=== PATIENT | male | born 1980 | race Caucasian/White ===

== ENCOUNTER 2017-02-10 10:08 | Emergency (ER) | payer OTHER ==
[~2017-02-10] VITALS: Ht 185.4 cm; Wt 116.0 kg
[2017-02-10] MEDS ORDERED: SODIUM CHLORIDE 0.9% 1,000 ML IV ONE (10:40)
[2017-02-10] MEDS ORDERED: SODIUM CHLORIDE 0.9% 1,000ML IVBOLUS ONE (11:00)
[2017-02-10] MEDS ORDERED: MORPHINE SULFATE 4 MG/ML, 1ML ONE ×2 (11:03→12:14)
[2017-02-10] MEDS ORDERED: ONDANSETRON 2MG/ML, 2ML ONE (11:03)
[2017-02-10 11:07] LABS: HEMOGLOBIN 16.9 g/dL (13.7-18.0)
[2017-02-10] MEDS: MORPHINE SULFATE 4 MG/ML, 1ML IVPush PRN ×2 (11:07→12:21)
[2017-02-10 11:19] LABS: ASPARTATE AMINO TRANSFERASE 13 U/L (15-37); BLOOD UREA NITROGEN 10 mg/dL (7-18)
[2017-02-10] MEDS ORDERED: ONDANSETRON 2MG/ML, 2ML IVPush ONE (11:30)
[2017-02-10] MEDS ORDERED: OMNIPAQUE 350 MG/ML, 100ML BOTTLE ONE (11:57)
[2017-02-10] MEDS ORDERED: CEFTRIAXONE PMX 1GM/50ML 50 ML ONE (12:14)
[2017-02-10] MEDS ORDERED: CEFTRIAXONE PMX 1GM/50ML 50 ML IV ONE (12:30)
[2017-02-10 12:55] VITALS: BP 127/76
== END 2017-02-10 12:57 | disposition home or self-care (01) ==
LOC: ED 12:51
DX: K57.32 Diverticulitis of large intestine without perforation or abscess without bleeding (principal); R10.32 Left lower quadrant pain
CPT/HCPCS: 36415; 74177; 80053; 81001; 83690; 85025; 87086; 96361; 96365; 96375; 96376; 99285; J0696; J2405; J7030; Q9967